=== PATIENT | female | born 1970 ===

== ENCOUNTER 2021-04-11 13:40 | Emergency (ER) | payer OTHER ==
[~2021-04-11] VITALS: Ht 162.6 cm; Wt 90.9 kg
[2021-04-11] MEDS ORDERED: FURO20 PO (13:46)
[2021-04-11] MEDS ORDERED: GABA-1216 PO (13:46)
[2021-04-11] MEDS ORDERED: QUET100T PO (13:46)
[2021-04-11] MEDS ORDERED: OXYB5TAB20 PO (13:46)
[2021-04-11] MEDS ORDERED: NAPR-1193 PO (13:46)
[2021-04-11 13:50] VITALS: BP 156/115
== END 2021-04-11 15:02 | disposition home or self-care (01) ==
LOC: EMS 13:40
DX: M25.562 Pain in left knee (principal); M25.561 Pain in right knee; F20.9 Schizophrenia, unspecified; F17.210 Nicotine dependence, cigarettes, uncomplicated; I50.9 Heart failure, unspecified
CPT/HCPCS: 99284; Z7502

== ENCOUNTER 2023-03-21 03:53 | Emergency (ER) | payer MEDICAID, OTHER ==
[~2023-03-21] VITALS: Ht 162.6 cm; Wt 90.0 kg
[~2023-03-21 03:53] MED LIST: FURO20 PO; GABA-1216 PO; NAPR-1193 PO; OXYB5TAB20 PO; QUET100T PO
[2023-03-21 04:12] VITALS: TEMP 98.5
[2023-03-21] MEDS ORDERED: HYDR25TA2 PO ×2 (04:17→09:14)
[2023-03-21] MEDS ORDERED: LISI-893 PO (04:17)
[2023-03-21] MEDS ORDERED: QUET200T PO ×2 (04:17→09:14)
[2023-03-21] MEDS ORDERED: BUPR-50 PO ×2 (04:17→09:14)
[2023-03-21 06:50] VITALS: BP 150/92; PULSE 78; RESP 20
[2023-03-21] MEDS ORDERED: GABAPENTIN 300 MG CAPSULE PO ONE (07:00)
[2023-03-21] MEDS ORDERED: TraMADol HCL 50 MG TABLET PO ONE (07:00)
[2023-03-21] MEDS ORDERED: OLANZapine 5 MG TABLET PO ONE (07:00)
[2023-03-21] MEDS ORDERED: IBUPROFEN 600 MG TABLET PO ONE (07:00)
[2023-03-21 07:33] LABS: BASOPHILS % (AUTO) 0.2 % (0.0-2.0); EOSINOPHILS % (AUTO) 0.4 % (1.0-6.0); LYMPHOCYTES # (AUTO) 1.3 K/uL (1.0-4.8); LYMPHOCYTES % (AUTO) 12.2 % (22.0-44.0); MEAN CORPUSCULAR HEMOGLOBIN 31.1 pg (26.0-34.0); MEAN CORPUSCULAR VOLUME 89 fL (80-100); MONOCYTES # (AUTO) 0.9 K/uL (0.1-1.0); MONOCYTES % (AUTO) 8.6 % (2.0-9.0); NEUTROPHILS # (AUTO) 8.3 K/uL (1.8-7.7); NEUTROPHILS % (AUTO) 78.6 % (40.0-70.0); PLATELET COUNT (AUTO) 242 K/uL (150-450); RED BLOOD CELL COUNT(AUTO) 4.51 MIL/uL (4.00-5.20); WHITE BLOOD COUNT (AUTO) 10.6 K/uL (4.5-11.0)
[2023-03-21 07:48] LABS: ALANINE AMINOTRANSFERASE 44 U/L (12-78); ALBUMIN 3.8 g/dL (3.4-5.0); ALKALINE PHOSPHATASE 104 U/L (46-116); ANION GAP 15 mmol/L (8-16); ASPARTATE AMINOTRANSFERASE 35 U/L (15-37); BILIRUBIN,TOTAL 0.8 mg/dL (0.1-1.0); CALCIUM, TOTAL 9.1 mg/dL (8.8-10.5); CARBON DIOXIDE 24 mmol/L (22-29); CHLORIDE 100 mmol/L (98-107); GLOMERULAR FILTR. RATE CALC > 60 mL/min (>60); GLUCOSE,RANDOM 84 mg/dL (70-110); SODIUM SERUM 139 mmol/L (136-145); TOTAL PROTEIN, SERUM 7.1 g/dL (6.4-8.2); UREA NITROGEN, BLOOD 15 mg/dL (7-18)
[2023-03-21 07:52] LABS: POTASSIUM 2.9 mmol/L (3.5-5.1)
[2023-03-21 07:54] LABS: ALCOHOL, BLOOD (SERUM) < 3 mg/dL (0-10)
[2023-03-21] MEDS ORDERED: GABA-1181 PO (09:14)
[2023-03-21] MEDS ORDERED: LISI-894 PO (09:14)
== END 2023-03-21 10:07 | disposition home or self-care (01) ==
LOC: EMS 03:54
DX: F20.0 Paranoid schizophrenia (principal); G89.29 Other chronic pain; M25.569 Pain in unspecified knee; E87.6 Hypokalemia; I11.0 Hypertensive heart disease with heart failure; I50.9 Heart failure, unspecified; F17.210 Nicotine dependence, cigarettes, uncomplicated; Z98.890 Other specified postprocedural states; Z59.00 Homelessness unspecified
CPT/HCPCS: 99284; 80053; 85025; 36415; G0480